=== PATIENT | male | born 1960 | race Caucasian/White ===

== ENCOUNTER 2023-06-17 13:54 | Emergency (ER) | payer MEDICARE, OTHER ==
[~2023-06-17] VITALS: Ht 165.1 cm; Wt 51.7 kg
[2023-06-17 14:02] VITALS: TEMP 97.9
[2023-06-17] MEDS ORDERED: SIME80TA15 PO (17:07)
[2023-06-17] MEDS ORDERED: GEL100GE TP (17:07)
[2023-06-17] MEDS ORDERED: NA P133E RC (17:07)
[2023-06-17] MEDS ORDERED: BISA10SU11 RC (17:07)
[2023-06-17] MEDS ORDERED: ZINC220C6 PO (17:07)
[2023-06-17] MEDS ORDERED: POLY17PO4 PO (17:07)
[2023-06-17] MEDS ORDERED: ACET-868 PO ×2 (17:07)
[2023-06-17] MEDS ORDERED: ONDA-97 PO (17:07)
[2023-06-17] MEDS ORDERED: OXYC-128 PO (17:07)
[2023-06-17] MEDS ORDERED: LOPE2TAB23 PO (17:07)
[2023-06-17] MEDS ORDERED: MULT-213 PO (17:07)
[2023-06-17] MEDS ORDERED: DEXT15DR6 EACHEYE (17:07)
[2023-06-17] MEDS ORDERED: ASCO-340 PO (17:07)
[2023-06-17] MEDS ORDERED: LACT1CAP80 PO (17:07)
[2023-06-17] MEDS ORDERED: SENN-261 PO (17:07)
[2023-06-17 18:33] VITALS: BP 122/85; O2SAT 98
== END 2023-06-17 20:00 ==
LOC: ER 13:54
DX: H61.22 Impacted cerumen, left ear (principal); M53.3 Sacrococcygeal disorders, not elsewhere classified; R09.89 Other specified symptoms and signs involving the circulatory and respiratory systems; M25.562 Pain in left knee; N40.0 Benign prostatic hyperplasia without lower urinary tract symptoms; G35 Multiple sclerosis; F41.9 Anxiety disorder, unspecified; Z79.899 Other long term (current) drug therapy; R07.89 Other chest pain
CPT/HCPCS: 71045-TC; 72131-TC; 73564-TC